=== PATIENT | male | born 1990 | race Caucasian/White ===

== ENCOUNTER 2018-07-06 16:51 | Emergency (ER) | payer OTHER ==
[2018-07-06] MEDS ORDERED: MOTRIN 600 MG PO ONE (17:34)
--- NOTE | 2018-07-06 17:35 | ERPHSYRPT ---
- History of Present Illness Time Seen by Provider: 07/06/18 17:30 Source: patient Exam Limitations: clinical condition Patient Subjective Stated Complaint: has a cough, fever and chills, nausea and vomitting, sore throat, spot behind left ear, getting migraines, chest hurts when taking a deep breath. Triage Nursing Assessment: pt A&O x3 steady gait, talking in full sentences, slightly flushed, knot behind left ear. Physician History: PATIENT COMPLAINS OF SORETHROAT, FEVER, CHILLS, UPPER BACK PAIN, CHEST PAIN UPON INSPIRATION FOR 3 DAYS. DENIES DIFFICULTY SWALLOWING, EMESIS OR DIARRHEA. HAS PRODUCTIVE COUGH RIBEIRO BROWN SPUTUM. Timing/Duration: day(s) Cough Quality/Degree: productive cough Possible Cause: occasional episodes Modifying Factors: Improves With: activity Associated Symptoms: fever, chills, chest pain/soreness, shortness of breath, sore throat International travel in last 2 weeks: No Allergies/Adverse Reactions: No Known Drug Allergies Allergy (Unverified 07/06/18 17:24) Hx Tetanus, Diphtheria Vaccination/Date Given: Yes Hx Influenza Vaccination/Date Given: Yes - Review of Systems Constitutional: Fever, Chills Eyes: No Symptoms Ears, Nose, & Throat: Throat Pain Respiratory: Cough Cardiac: No Symptoms Abdominal/Gastrointestinal: No Symptoms Genitourinary Symptoms: No Symptoms Musculoskeletal: No Symptoms Skin: No Symptoms Endocrine: No Symptoms Hematologic/Lymphatic: No Symptoms - Past Medical History Cardiac History: Hypertension - Past Surgical History Past Surgical History: Yes Other Surgical History: index finger left hand - Social History Smoking Status: Current every day smoker How long have you smoked: 10 years Exposure to second hand smoke: Yes Drug Use: none Patient Lives Alone: No - Nursing Vital Signs Nursing Vital Signs: Initial Vital Signs Temperature 97.8 F 07/06/18 17:17 Pulse Rate 110 H 07/06/18 17:17 Respiratory Rate 20 07/06/18 17:17 Blood Pressure 157/101 07/06/18 17:17 O2 Sat by Pulse Oximetry 99 07/06/18 17:17 Pain Scale Pain Intensity 5 - Physical Exam SpO2: 99 Oxygen Delivery: Room Air Ordered Tests: Active Orders 24 hr Category Date Time Status CHEST 2 VIEWS (PA AND LAT) Stat Exams 07/06/18 17:34 Taken Medication Summary Discontinued Medications Generic Name Dose Route Start Last Admin Trade Name Freq PRN Reason Stop Dose Admin Amoxicillin/Clavulanate Potassium 875 mg 07/06/18 18:16 07/06/18 18:19 Augmentin 875-125 Tablet PO 07/06/18 18:17 875 mg STAT ONE Administration Amoxicillin/Clavulanate Potassium Confirm 07/06/18 18:18 Augmentin 875-125 Tablet Administered 07/06/18 18:19 Dose 875 mg .ROUTE .STK-MED ONE Ibuprofen 600 mg 07/06/18 17:34 07/06/18 17:38 Motrin 600 Mg PO 07/06/18 17:35 600 mg STAT ONE Administration Ibuprofen Confirm 07/06/18 17:37 Motrin 600 Mg Administered 07/06/18 17:38 Dose 600 mg .ROUTE .STK-MED ONE Lab/Rad Data: Laboratory Results 07/06/18 Range/Units 17:58 Influenza Type A Ag NEGATIVE (NEGATIVE) Influenza Type B Ag NEGATIVE (NEGATIVE) RSV (PCR) NEGATIVE (Negative) Group A Strep Antibody NEGATIVE (NEGATIVE) - Departure Time of Disposition: 19:07 Departure Disposition: Home Clinical Impression: ACUTE BRONCHITIS, PLEURISY Condition: Stable Critical Care Time: No Referrals: DOCTOR,NO FAMILY [Primary Care Provider] - Additional Instructions: ANTIBIOTIC AUGMENTIN 875MG TWICE DAILY FOR 10 DAYS. TYLENOL OR MOTRIN NEEDED FOR FEVER. TAKE OVER THE COUNTER EXPECTORANT COUGH SYRUP NEEDED. TORADOL 10MG EVERY 6 HOURS OR PAIN. CONSULT YOUR PRIMARY CARE PROVIDER FOR FOLLOWUP IN 1 WEEK. Prescriptions: Ketorolac Tromethamine [Toradol] 10 mg PO Q6H PRN PRN #20 tablet PRN Reason: Pain Amox Tr/Potass Clav. 875 mg [Augmentin 875-125 Tablet] 875 mg PO BID #20 tablet
[2018-07-06] MEDS ORDERED: MOTRIN 600 MG ONE (17:37)
[2018-07-06] MEDS ORDERED: Augmentin 875-125 Tablet PO ONE (18:16)
[2018-07-06] MEDS ORDERED: Augmentin 875-125 Tablet ONE (18:18)
[2018-07-06 18:43] LABS: INFLUENZA A NEGATIVE (NEGATIVE); INFLUENZA B NEGATIVE (NEGATIVE); RESPIRATORY SYNCTIAL VIRUS NEGATIVE (Negative)
[2018-07-06 18:54] VITALS: BP 145/88; PULSE 97
[2018-07-06 19:07] VITALS: O2SAT 99
--- NOTE | 2018-07-07 08:37 | XRAY ---
Indication: Fever, cough, short of breath. Comparison: None PA/lateral chest demonstrates normal heart, lungs, and bony thorax.
== END 2018-07-06 19:10 | disposition home or self-care (01) ==
LOC: ED 16:51
DX: J20.9 Acute bronchitis, unspecified (principal); R09.1 Pleurisy; J02.9 Acute pharyngitis, unspecified
CPT/HCPCS: 71046; 87631; 87651; 99284; A9270-GY